=== PATIENT | male | born 1985 ===

== ENCOUNTER 2023-02-09 19:52 | Inpatient (IN) | payer SELFPAY ==
[2023-02-09] MEDS ORDERED: Sodium Chloride 0.9% 10 ML Syringe FLUSH PRN (21:51)
[2023-02-09] MEDS ORDERED: MVI, Adult with Vitamin K 10 ML, Folic Acid 1 MG, Thiamine 100 MG in Lactated Ringers 1... IV ONE ×4 (22:08)
[2023-02-09 22:10] LABS: BASOPHILS PERCENT AUTO 0.6 % (0.0-1.0); EOSINOPHILS PERCENT AUTO 2.3 % (1.0-3.0); HEMATOCRIT 45.8 % (40.0-54.0); HEMOGLOBIN 15.7 g/dL (14.0-18.0); LYMPHOCYTES PERCENT AUTO 33.3 % (20.5-50.1); MEAN CORPUSCULAR HEMOGLOBIN 31.8 pg (27.0-34.0); MEAN CORPUSCULAR HGB CONC 34.3 g/dL (33.0-35.0); MEAN CORPUSCULAR VOLUME 92.7 fL (80-100); MONOCYTES PERCENT AUTO 8.9 % (2-8); NEUTROPHILS PERCENT AUTO 54.9 % (42.2-75.2); PLATELET COUNT,PLT 269 10^3/uL (150-450); RED BLOOD CELL COUNT 4.94 10^6/uL (4.6-6.2); WHITE BLOOD CELL COUNT,WBC 10.6 10^3/uL (5.0-10.0)
[2023-02-09 22:37] LABS: A/G RATIO 1.1; ALBUMIN 4.1 g/dL (3.4-5.0); ANION GAP 15.8 mEq/L (7-13); BILIRUBIN TOTAL 0.3 mg/dL (0.2-1.0); BUN/CREATININE RATIO 7.7 (No establ ref range); CALCIUM 9.6 mg/dL (8.5-10.1); CREATININE 0.91 mg/dL (0.70-1.30); EST CRCL DRUG DOSING (CG) 108.99 mL/min; MAGNESIUM 2.2 mg/dL (1.8-2.4); POTASSIUM,K 3.8 mmol/L (3.5-5.1); TSH ULTRASENSITIVE 1.25 uIU/mL (0.36-3.74)
[2023-02-09] MEDS ORDERED: LORazepam 2 MG/ML SDV IVPUSH ONE ×2 (22:47)
[2023-02-09 22:51] LABS: AMPHETAMINES,URINE NEGATIVE (NEGATIVE); BARBITURATES,URINE NEGATIVE (NEGATIVE); BENZODIAZEPINE,URINE NEGATIVE (NEGATIVE); MDMA (ECSTASY), URINE NEGATIVE (NEGATIVE); METHADONE,URINE NEGATIVE (NEGATIVE); METHAMPHETAMINES,URINE NEGATIVE (NEGATIVE); OPIATES,URINE NEGATIVE (NEGATIVE); OXYCODONE,URINE NEGATIVE (NEGATIVE); PHENCYCLIDINE,URINE NEGATIVE (NEGATIVE); TCA,URINE NEGATIVE (NEGATIVE)
[2023-02-10] MEDS: Nicotine 21 MG/24 Hr Patch TRDERM SCH (02:05)
[2023-02-10] MEDS ORDERED: Ondansetron 4 MG/2 ML SDV IVPUSH PRN (02:08)
[2023-02-10] MEDS ORDERED: Acetaminophen 325 MG Tab PO PRN (02:08)
[2023-02-10] MEDS ORDERED: MVI, Adult with Vitamin K 10 ML SDV IV ONE (02:12)
[2023-02-10] MEDS: ClonazePAM 0.5 MG Tab PO SCH ×4 (05:25→21:05)
[2023-02-10] MEDS: Pantoprazole 40 MG Tab.CR PO SCH (05:25)
[2023-02-10] MEDS: Multivitamin Tab PO SCH (08:34)
[2023-02-10] MEDS: LORazepam 1 MG Tab PO PRN ×2 (08:34→19:30)
[2023-02-10] MEDS: Thiamine 100 MG Tab PO SCH (08:35)
[2023-02-10] MEDS: Folic Acid 1 MG Tab PO SCH (08:35)
[2023-02-10] MEDS: LORazepam 2 MG/ML SDV IVPUSH SCH ×2 (16:15→17:27)
[2023-02-11] MEDS: LORazepam 1 MG Tab PO PRN (06:19)
[2023-02-11] MEDS: Pantoprazole 40 MG Tab.CR PO SCH (06:19)
[2023-02-11] MEDS: Folic Acid 1 MG Tab PO SCH (08:26)
[2023-02-11] MEDS: ClonazePAM 0.5 MG Tab PO SCH (08:26)
[2023-02-11] MEDS: Multivitamin Tab PO SCH (08:26)
[2023-02-11] MEDS: Thiamine 100 MG Tab PO SCH (08:26)
[2023-02-11] MEDS: Nicotine 21 MG/24 Hr Patch TRDERM SCH (08:27)
== END 2023-02-11 09:45 | disposition home or self-care (01) | DRG 897 ==
LOC: DL.ED 19:52 → DL.MS 22:47 → DL.ED 22:54
PROVIDERS: ADMIT Internal Medicine; ATTEND Internal Medicine
DX: F10.230 Alcohol dependence with withdrawal, uncomplicated (principal); F17.210 Nicotine dependence, cigarettes, uncomplicated; F41.9 Anxiety disorder, unspecified; F32.A Depression, unspecified; F42.9 Obsessive-compulsive disorder, unspecified; F43.10 Post-traumatic stress disorder, unspecified; Y90.7 Blood alcohol level of 200-239 mg/100 ml
CPT/HCPCS: 36415; 80053; 80305-QW; 80307; 83735; 84443; 85025; 93005; 93010; 96365; 99222; 99238; 99284; 99285-25; A9270-GY; J2060; J3411; J3490; J7120